=== PATIENT | female | born 1950 ===

== ENCOUNTER 2022-12-06 05:24 | Day surgery (SDC) | payer MEDICARE, OTHER ==
[~2022-12-06 05:24] MED LIST: Dextrose 5%-0.45% NaCl 1,000 ML IV SCH
[2022-12-06] MEDS ORDERED: Dextrose 5%-0.45% NaCl 1,000 ML IV SCH (06:00)
[2022-12-06] MEDS ORDERED: fentaNYL 100 MCG/2 ML SDV ONE (06:14)
[2022-12-06] MEDS ORDERED: Midazolam 1 MG/ML 2 ML SDV ONE (06:14)
[2022-12-06] MEDS ORDERED: fentaNYL 100 MCG/2 ML SDV IV ONE ×2 (06:30→06:31)
[2022-12-06] MEDS ORDERED: Midazolam 1 MG/ML 2 ML SDV IV ONE ×3 (06:31→06:33)
== END 2022-12-06 08:40 | disposition home or self-care (01) ==
LOC: DL.ENDO 05:24
PROVIDERS: ATTEND Internal Medicine Gastroenterology
DX: Z12.11 Encounter for screening for malignant neoplasm of colon (principal); D12.3 Benign neoplasm of transverse colon; K64.4 Residual hemorrhoidal skin tags; K64.8 Other hemorrhoids; I10 Essential (primary) hypertension; E78.1 Pure hyperglyceridemia; K62.3 Rectal prolapse; J30.9 Allergic rhinitis, unspecified; E88.1 Lipodystrophy, not elsewhere classified; E11.9 Type 2 diabetes mellitus without complications; Z98.890 Other specified postprocedural states; Z79.82 Long term (current) use of aspirin; Z79.899 Other long term (current) drug therapy
CPT/HCPCS: 88305; J2250; J3010; J7042